=== PATIENT | male | born 1950 | race African-American/Black ===

== ENCOUNTER 2017-01-29 15:01 | Observation (INO) | payer OTHER ==
[~2017-01-29] VITALS: Ht 180.3 cm; Wt 70.8 kg
--- NOTE | ~2017-01-29 | US37 ---
[facility] A Service [facility] RADIOLOGY TEXT RESULTS PATIENT: SHARONA WHITLEY LOCATION: [facility] : 49 UNIT #: [id number] AGE: [address]: Sebas Pickett MD SEX: M ORDER DR: [id number] [facility] [address] [facility]. [place], [place] [address] [id number] I MR#: [id number] Acc #: [id number] NAME: SHARONA WHITLEY : 1950 SEX: M STUDY DATE/TIME: 01/30/2017 8:19 UNIT: [address] ROOM: [facility] STUDY DESCRIPTION: US Carotid W/Doppler Bilateral Attending Physician: Sebas Pickett M.D. Ordering Physician: Solomon Kenny M.D. Primary Care Physician: Andre Loyola M.D. MEDICAL IMAGING REPORT This report is preliminary unless electronic signature is present EXAM Carotid Doppler ultrasound HISTORY Syncopal episode yesterday. Chronic hypertension. COMPARISON 11/04/2010 TECHNIQUE Ultrasound evaluation was performed with mcwilliams-scale, color flow and Doppler spectral waveform analysis. Carotid flow was assessed using standards based on NASCET methodology. FINDINGS No significant atheromatous plaque is identified within the carotid arteries in the neck bilaterally. Doppler evaluation shows normal flow velocities and normal Doppler waveforms within the carotid and vertebral arteries bilaterally. There is no evidence of significant carotid stenosis in the neck. IMPRESSION Normal carotid Doppler ultrasound examination. Dictated by... Dionisio Burkett M.D. THIS IS AN ELECTRONICALLY VERIFIED REPORT Dionisio Burkett M.D. at 02/01/2017 7:22 AM RLF/psc [facility] A [facility] RADIOLOGY TEXT RESULTS PATIENT: SHARONA WHITLEY LOCATION: [facility] : 49 UNIT #: [id number] AGE: [address]: Sebas Pickett MD SEX: M ORDER DR: TD: 01/30/2017 23:44 JOB #: [id number] MEDICAL IMAGING REPORT Page 1 of 1 COPY
--- NOTE | ~2017-01-29 | CR151 ---
[facility] A Service of [facility] RADIOLOGY TEXT RESULTS PATIENT: SHARONA WHITLEY LOCATION: [facility] 326-01 : 49 UNIT #: [id number] AGE: [address]: Sebas Pickett MD SEX: M ORDER DR: [id number] [facility] [address] [facility]. [place], [place] [address] [id number] I MR#: [id number] Acc #: [id number] NAME: SHARONA WHITLEY : 1950 SEX: M STUDY DATE/TIME: 01/29/2017 15:23 UNIT: A [facility] ROOM: [facility] STUDY DESCRIPTION: CR Hip Min 2 Views Rt Attending Physician: Sebas Pickett M.D. Ordering Physician: Geovanni Ryan D.O. Primary Care Physician: Andre Loyola M.D. MEDICAL IMAGING REPORT This report is preliminary unless electronic signature is present EXAM Right hip. INDICATIONS Right hip pain for 6 weeks. Twisted right leg. FINDINGS Two views of the right hip without comparison. The patient has a right hip arthroplasty. Alignment is anatomic. No foreign body. IMPRESSION No acute findings. Dictated by... Santi Irvin M.D. THIS IS AN ELECTRONICALLY VERIFIED REPORT Santi Irvin M.D. at 01/30/2017 5:16 PM RPWilfredo/esther TD: 01/30/2017 16:48 JOB #: [id number] MEDICAL IMAGING REPORT Page 1 of 1 COPY
--- NOTE | ~2017-01-29 | CR72 ---
[facility] A Service of [facility] & [facility] RADIOLOGY TEXT RESULTS PATIENT: SHARONA WHITLEY LOCATION: [facility] 326-01 : 49 UNIT #: [id number] AGE: [address]: Sebas Pickett MD SEX: M ORDER DR: [id number] [facility] [address] [facility] [place], [place] [address] [id number] I MR#: [id number] Acc #: [id number] NAME: SHARONA WHITLEY : 1950 SEX: M STUDY DATE/TIME: 01/29/2017 15:20 UNIT: [address] ROOM: [facility] STUDY DESCRIPTION: CR Chest Single View Portable Attending Physician: Sebas Pickett M.D. Ordering Physician: Geovanni Ryan D.O. Primary Care Physician: Andre Loyola M.D. MEDICAL IMAGING REPORT This report is preliminary unless electronic signature is present EXAM Single view chest. INDICATIONS Syncope. Fall. FINDINGS Single portable AP view of the chest compared to 11/04/2010. Heart and mediastinal contours normal. Lungs are clear. No pleural effusion. IMPRESSION No acute cardiopulmonary findings. Dictated by... Santi Irvin M.D. THIS IS AN ELECTRONICALLY VERIFIED REPORT Santi Irvin M.D. at 01/30/2017 5:16 PM RPWilfredo/esther TD: 01/30/2017 16:50 JOB #: [id number] MEDICAL IMAGING REPORT Page 1 of 1 COPY
--- NOTE | ~2017-01-29 | DS ---
Unit #: [id number] #: [id number] Patient: SHARONA WHITLEY [id number] [address] [address] [id number] I MR#: [id number] NAME: SHARONA WHITLEY ROOM: 326 Age: 66 Sex: M Admission Date: 01/29/2017 : 1950 Discharge Date: 01/31/2017 Attending Physician: Sebas Pickett M.D. Primary Care Physician: Andre Loyola M.D. DISCHARGE SUMMARY DISCHARGE DIAGNOSES 1. Syncope. 2. Coronary artery disease. 3. History of renal transplant. 4. Hypertension. 5. Hyperlipidemia. 6. Diabetes. HOSPITAL COURSE The patient is a 66-year-old male admitted 01/29/2017 after an episode of syncope. The patient states that he was at [place] fle[place] market when he felt dizzy and leaned against his truck. He states that he must of loss consciousness because he then awoke after having been unconscious. He stated he had never had an episode of this before and denies chest pain, shortness of breath, or any incontinence. Of note, the patient also has a history of kidney transplant performed in the year 1999. Patient was worked up and had a 2-Dimensional echo, which showed an ejection fraction of 60%. Doppler ultrasound of his carotid arteries is normal. The patient did go for stress testing, which revealed some anterior wall ischemia that is felt to be secondary to an RCA stenosis that is not amenable to percutaneous intervention. The patient had several sets of orthostatic vital signs, one of which was very positive. It is unclear if this is related to volume, diabetic dysautonomia or side effect of his CellCept. Regardless at this time, the patient has been syncope free and his workup has been relatively benign. He is requesting discharge at this time and it seems reasonable, as there are no further testing plans. DISCHARGE MEDICATIONS 1. Pravastatin 40 mg daily. 2. Losartan 50 mg daily. 3. CellCept 1,000 mg p.o. b.i.d. 4. Plavix 75 mg daily. 5. Protonix 40 mg daily. 6. Potassium chloride ER 10 mEq daily. 7. Glucotrol XL 10 mEq p.o. daily. 8. Onglyza 5 mg p.o. daily. FOLLOWUP Patient should followup with his cargoman, Dr. Land, at his next regularly scheduled appointment. Additionally he should followup with his primary care provider, Dr. Andre Loyola in one to two weeks. Unit #: [id number] #: [id number] Patient: SHARONA WHITLEY Dictated by... Sebas Pickett M.D. CHRISTIANO/nick TD: 02/01/2017 11:32 JOB #: [id number] DISCHARGE SUMMARY Page 1 of 1 X Sebas Pickett MD X DISCHARGE SUMMARY
--- NOTE | ~2017-01-29 | HM ---
Unit #: [id number] #: [id number] Patient: SHARONA WHITLEY [id number] [address] [address] [id number] I MR#: [id number] NAME: SHARONA WHITLEY : 1950 SEX: M STUDY DATE/TIME: 02/03/2017 UNIT: C3A PCU ROOM: [facility] STUDY DESCRIPTION: Holter monitor Attending Physician: Sebas Pickett M.D. Primary Care Physician: Andre Loyola M.D. CARDIOLOGY REPORT EXAM 24-hour Holter monitor. DATE APPLIED 01/30/17 DATE SCANNED 02/02/[address] Pickett READ BY Dr. Lela Charles. INDICATION Syncope. COMMENTS Underlying rhythm is sinus bradycardia with an average heart rate of 56 beats per minute, minimum heart rate of 44 beats per minute, and a maximum heart rate of 122 beats per minute. The minimum heart rate of 44 beats per minute is noted at 11:53 a.m. The maximum heart rate of 122 beats per minute is noted at 2:14 p.m. Patient had a 1-second pause noted at 12:02 a.m. Patient had 195 single multifocal premature ventricular complex and 8 ventricular couplets noted. Patient had 329 single premature atrial complex noted. Patient did not record any symptoms. CONCLUSIONS 1. Underlying rhythm is sinus bradycardia with an average heart rate of 56 beats per minute, minimum heart rate of 44 beats per minute, and a maximum heart rate of 122 beats per minute. 2. No sustained atrial or ventricular arrhythmias noted. 3. No significant pauses noted. 4. Occasional single multifocal premature ventricular complex noted. 5. Occasional single premature atrial complex noted. 6. Patient did not record any symptoms. Dictated by... Lela Charles M.D. Unit #: [id number] #: [id number] Patient: SHARONA WHITLEY REBEKA/latha TD: 02/03/2017 13:20 JOB #: [id number] CARDIOLOGY REPORT Page 1 of 1 X Lela Charles MD <ELECTRONICALLY SIGNED> 03/10/17 152 HOLTER MONITOR REPORT
--- NOTE | ~2017-01-29 | EKG ---
PATIENT: SHARONA WHITLEY UNIT #: [id number] Ventricular Rate: 93 BPM Atrial Rate: 93 BPM P-R Interval: 176 ms QRS Duration: 98 ms Q-T Interval: 362 ms QTC Calculation(Bezet): 450 ms P [place]: 59 degrees Calculated R [place]: -32 degrees Calculated T [place]: 7 degrees Diagnosis Line: Normal sinus rhythm Diagnosis Line: Left axis deviation Diagnosis Line: Voltage criteria for left ventricular hypertrophy Diagnosis Line: Inferior infarct , age undetermined Diagnosis Line: Abnormal ECG Diagnosis Line: When compared with ECG of 13-NOV-2013 23:44, Diagnosis Line: Vent. rate has increased BY 36 BPM Diagnosis Line: Inverted T waves have replaced nonspecific T wave Diagnosis Line: abnormality in Inferior leads Diagnosis Line: QT has lengthened Diagnosis Line: Confirmed by ELISABETH RAMIREZ, RAYNA ([id number]) on 01/30/2017 Diagnosis Line: 3:07:29 PM INTERPRETING MD: ELISABETH RAMIREZ
--- NOTE | ~2017-01-29 | CT71 ---
[facility] A Service of [facility] RADIOLOGY TEXT RESULTS PATIENT: SHARONA WHITLEY LOCATION: [facility] 326 : 49 UNIT #: [id number] AGE: [address]: Sebas Pickett MD SEX: M ORDER DR: [id number] [place] [id number] [facility]. [place], [place] [address] [id number] I MR#: [id number] Acc #: [id number] NAME: SHARONA WHITLEY : 1950 SEX: M STUDY DATE/TIME: 01/29/2017 16:50 UNIT: C3A PCU ROOM: [facility] STUDY DESCRIPTION: CT Head Wo Contrast Attending Physician: Sebas Pickett M.D. Ordering Physician: Geovanni Ryan D.O. Primary Care Physician: Andre Loyola M.D. MEDICAL IMAGING REPORT This report is preliminary unless electronic signature is present EXAM CT head. INDICATIONS Syncopal episode approximate [address] head 11/03/2010. TECHNIQUE CT head without contrast. Axial noncontrast images were obtained from the skull base to the vertex. This CT exam was performed with one or more of the following radiation dose reduction techniques: automatic exposure control, adjustment of mA and/or kV according to patient size, and iterative reconstruction. FINDINGS Ventricular size and configuration are normal. There is no evidence of acute infarct or hemorrhage. There are no extraaxial fluid collections. No mass lesion or mass effect is seen. There are no skull fractures. IMPRESSION Normal noncontrast head CT. Dictated by... Santi Irvin M.D. THIS IS AN ELECTRONICALLY VERIFIED REPORT Santi Irvin M.D. at 01/30/2017 5:44 PM C/esther TD: 01/30/2017 17:34 JOB #: [id number] [facility] A Service [facility] RADIOLOGY TEXT RESULTS PATIENT: SHARONA WHITLEY LOCATION: [facility] 326 : 49 UNIT #: [id number] AGE: [address]: Sebas Pickett MD SEX: M ORDER DR: MEDICAL IMAGING REPORT Page 1 of 1 COPY
--- NOTE | ~2017-01-29 | ST ---
Unit #: [id number] #: [id number] Patient: SHARONA WHITLEY [id number] [address] [address] [id number] I MR#: [id number] NAME: SHARONA WHITLEY : 1950 SEX: M STUDY DATE/TIME: UNIT: C3A PCU ROOM: [facility] STUDY DESCRIPTION: Stress Test Attending Physician: Sebas Pickett M.D. Primary Care Physician: Andre Loyola M.D. CARDIOLOGY REPORT EXAM Walking Lexiscan Cardiolite Stress Test FINDINGS Baseline EKG - sinus bradycardia with a rate of 50 beats per minute, otherwise normal. Lexiscan was injected immediately followed by Cardiolite while the patient ambulated on the treadmill for a total of 4 minutes. He had no complaints of chest pain, palpitations or dizziness. EKG during Lexiscan showed no ST-T wave abnormalities. Was noted for occasional premature ventricular complex and premature atrial complexes. Maximum blood pressure response 170/96 mmHg. Baseline blood pressure 130/90 mmHg. Please correlate these results with nuclear images. Dictated by... Elliot Green A.P.R.N. for Saadia Ellis/africa TD: 01/31/2017 12:46 JOB #: [id number] CARDIOLOGY REPORT Page 1 of 1 X Elliot Green APRN CARDIOLOGY REPORT
--- NOTE | ~2017-01-29 | CO ---
Unit #: [id number] #: [id number] Patient: SHARONA WHITLEY [id number] [address] [place], [place] [address] [id number] I MR#: [id number] NAME: SHARONA WHITLEY ROOM: 326 Age: 66 Sex: M Admission Date: 01/29/2017 : 1950 Attending Physician: Sebas Pickett M.D. Primary Care Physician: Andre Loyola M.D. Consultation Date: 01/30/2017 CONSULTATION REPORT REASON FOR CONSULTATION Syncope. HISTORY OF PRESENT ILLNESS This is a 66-year-old male with a prior history of kidney transplant in 1999; anemia; hypertension; and diabetes mellitus type 2; hyperlipidemia; history of TIA; and coronary artery disease, status post stent in the past. He is a patient of Dr. Land and states he had his last cardiac cath 3 to 4 years ago at [facility], where a stent was placed. He also reports he follows with a vascular doctor, who is monitoring blockages in his neck. He presented to the ER after a syncopal episode. States he was at the [employer] market yesterday and abruptly felt lightheaded and blacked out. He did fall with an episode. He denies prior chest discomfort or shortness of breath with the episode. He denies recent illness with fever, chills, or body aches. He does report that he has had decreased activity lightly. States he just felt like he has not been doing the things that he normally does. He denies chest pain in the last few years. He does report he had an [place] many years ago and had a cardiac cath with stent placement. He had an abnormal stress test 3 to 4 years ago and had the cardiac cath with stent placed at [facility]. Those records are currently not available. He states he is not very active, but when he does daily activities, he does not get chest discomfort, or shortness of breath. He denies any other syncopal episodes. He is currently chest pain free. He denies any return of dizziness or lightheadedness. Denies shortness of breath. PAST MEDICAL HISTORY 1. 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 2. Anemia. 3. Hypertension. 4. Coronary artery disease, status post stent with last cath 3 to 4 years ago (records currently not available). 5. Diabetes mellitus type 2. 6. Hyperlipidemia. 7. History of TIA. 8. History of C diff colitis. 9. History of diverticular disease. 10. GERD. PAST SURGICAL HISTORY 1. History of cardiac cath and stent. Unit #: [id number] #: [id number] Patient: SHARONA WHITLEY 2. Right total hip replacement. SOCIAL HISTORY The patient lives alone. He denies history of smoking or illicit drug use. States he rarely drinks alcohol. FAMILY HISTORY Denies family history of premature coronary disease. ALLERGIES No known drug allergies. HOME MEDICATIONS Plavix 75 mg p.o. once a day, Protonix 40 mg p.o. daily, losartan 100 mg p.o. daily, Onglyza 5 mg p.o. daily, pravastatin 40 mg p.o. daily, mycophenolate mofetil 1000 mg p.o. every 12 hours, Glucotrol XL 10 mg p.o. daily, potassium chloride 10 mEq p.o. daily. REVIEW OF SYSTEMS A 10-point review of systems was conducted and is otherwise negative except for what was stated in HPI. PHYSICAL EXAMINATION VITAL SIGNS: Temp 98.1, heart rate 63, respiratory rate 18, blood pressure 125/65. GENERAL: This is a 66-year-old male resting in bed, in no acute distress. HEENT: Head is atraumatic and normocephalic. Pupils are equal and reactive to light. Mucous membranes are moist and intact. NECK: Bilateral carotid arterial bruit. No slowing of heart rate with carotid massage. Trachea is midline. No JVD. CARDIOVASCULAR: S1, S2. Regular rate and rhythm. LUNGS: Clear. Nonlabored respirations. ABDOMEN: Soft, nontender, and nondistended. There is a right femoral arterial bruit. EXTREMITIES: Pulses are palpable. No pedal edema. No cyanosis. NEUROLOGIC: Alert and oriented to x3. Moves all extremities equally and follows commands without difficulty. DIAGNOSTIC STUDIES LABORATORY RESULTS: Sodium 138, potassium 3.8, chloride 102, BUN 15, creatinine 1.4, glucose 208. Hemoglobin 13.1, hematocrit 40.9, white blood cell count 11.3, platelets 277. Point of care troponin less than 0.05. CARDIOVASCULAR STUDIES: EKG shows sinus rhythm with Q-waves in inferior lead and nonspecific T-wave abnormalities and left axis deviation. ASSESSMENT 1. Syncope, questionable postural hypotension. 2. Bilateral carotid arterial bruits. 3. Right femoral arterial bruit. 4. Coronary artery disease, status post percutaneous coronary intervention and stents, old inferior wall myocardial infarction. 5. Status post renal transplant in 1999. 6. Left hip pain, status post fall during syncope. PLAN Unit #: [id number] #: [id number] Patient: SHARONA WHITLEY 1. We will obtain his cardiac cath report from [facility] as well as his other cardiac records. 2. Check lipid profile. 3. Check TSH. 4. Walking Lexiscan Cardiolite stress test in the a.m. 5. Aspirin 81 mg daily. 6. BP supine and standing b.i.d. 7. Holter monitor to check for bradycardia. 8. Naprosyn 375 mg p.o. q.12 hours for hip pain x4 doses only. Thank you for asking us to see this patient. We appreciate the consult. Dictated by... Debbie Olvera APRN for Todd Lal M.D. JARAD/katharina TD: 01/31/2017 11:32 JOB #: [id number] CONSULTATION REPORT Page 1 of 1 X X CONSULTATION REPORT
--- NOTE | ~2017-01-29 | HP ---
Unit #: [id number] #: [id number] Patient: SHARONA WHITLEY [id number] [address] [address] [id number] MR#: [id number] NAME: SHARONA WHITLEY ROOM: 326 Age: 66 Sex: M Admission Date: 01/29/2017 : 1950 Attending Physician: Sebas Pickett M.D. Primary Care Physician: Andre Loyola M.D. HISTORY AND PHYSICAL CHIEF COMPLAINT Syncopal episode. DISCUSSION This is a 66-year-old gentleman who has a past medical history of hypertension, history of kidney transplant on chronic immune suppression therapy, history of coronary artery disease, previous stent, diabetes, dyslipidemia and GERD. He states he was at [employer] market today and the next thing he remembered that he was on the floor. He said he felt a little dizziness and leaning against the truck and then he said he does not remember how long he passed out. He denies any chest pain, nausea, vomiting, fever, chills, cough or any complaint. He denies any previous history of syncopal episode. He denied chest pain. He denied incontinence of bowel, urine or any other complaint. PAST MEDICAL HISTORY 1. 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 2. History of chronic immune suppression therapy secondary to kidney transplant. 3. Hypertension. 4. Coronary artery disease with previous stent. 5. Diabetes. 6. Dyslipidemia. 7. GERD. 8. History of C. diff. colitis in the past. 9. History of diverticular disease. PAST SURGICAL HISTORY 1. History of cardiac cath and stent. 2. Right total hip replacement. SOCIAL HISTORY The patient lives alone, denies smoking, uses alcohol very seldom, denied any illicit drug use. FAMILY HISTORY Diabetes, colon cancer (1) in the family. ALLERGIES No known drug allergy. MEDICATION FROM HOME I do not have doses at this time. Unit #: [id number] #: [id number] Patient: SHARONA WHITLEY 1. Rapamune. 2. Fenofibrate. 3. Atenolol. 4. Plavix. 5. Protonix. 6. Actos. 7. Losartan. 8. Onglyza. 9. Pravastatin. 10. Mycophenolate. 11. Glucotrol XL. 12. Potassium chloride. REVIEW OF SYSTEMS All review of systems negative except for history of presenting illness. PHYSICAL EXAMINATION GENERAL APPEARANCE: Middle-aged man lying in the bed comfortably, currently, not in any distress. He is alert, awake, oriented x3, comfortable, not in any distress. CURRENT VITAL SIGNS: Temperature 97.8. Heart rate 94. Respiratory rate 15. Blood pressure 145/84. Oxygen 100% on room air. HEENT: Pupils equal and reactive to light. Head is normocephalic, atraumatic. NECK: Supple. Positive carotid bruit bilaterally. LUNGS: Clear to auscultation bilaterally. No rhonchi. No wheezing. HEART: S1, S2. Regular rate and rhythm. ABDOMEN: Soft, nontender, nondistended. Bowel sounds positive. EXTREMITIES: Inspection normal. No cyanosis. No clubbing. No edema. NEUROLOGIC: No focal neurologic deficit. Cranial nerves II-XII intact. Power 5/5 on both sides. SKIN: Warm and dry. PSYCHIATRIC: Normal mood and affect. DIAGNOSTIC STUDIES LABORATORY: Troponin is less than 0.05, less than 0.05. Sodium 138, potassium 3.8, chloride 102, glucose 208, BUN 15, creatinine 1.4. LFTs within normal limits. INR is one. White count 11, hemoglobin 13, hematocrit 40, platelets 277. IMAGING: Chest x-ray negative. CT head is negative. X-ray of the right hip is negative. ASSESSMENT AND PLAN 1. Syncopal episode. We will admit the patient 23-hour observation. We will get 2D echo, carotid Doppler and monitor on telemetry. Ask Cardiology to evaluate. 2. Hypertension. 3. History of chronic immune suppression secondary to history of renal transplant. 4. Coronary artery disease with previous stent. 5. Diabetes. 6. Dyslipidemia. 7. GERD. 8. DVT prophylaxis. Place the patient on Lovenox. Dictated by Unit #: [id number] #: [id number] Patient: SHARONA WHITLEY Saadia Arreguin TD: 01/30/2017 12:16 JOB #: [id number] HISTORY AND PHYSICAL Page 1 of 1 X X HISTORY AND PHYSICAL
--- NOTE | ~2017-01-29 | TH ---
Unit #: [id number] #: [id number] Patient: SHARONA WHITLEY [id number] [address] [address] [id number] I MR#: [id number] NAME: SHARONA WHITLEY : 1950 SEX: M STUDY DATE/TIME: 01/31/2017 UNIT: C3A PCU ROOM: [facility] STUDY DESCRIPTION: Attending Physician: Sebas Pickett M.D. Primary Care Physician: Andre Loyola M.D. CARDIOLOGY REPORT EXAM Lexiscan Cardiolite stress test, nuclear portion. PROCEDURE Using technetium 99m labeled Cardiolite, rest and stress SPECT images were obtained. Multiple SPECT images were obtained in various views including horizontal and vertical long axis and short axis views of the left ventricle. Images were obtained by gated SPECT method. Patient was administered 10.1 mCi of Cardiolite at rest. Patient was administered 31.3 mCi of Cardiolite after Lexiscan infusion was completed. On the stress images, there is a medium-sized area of severe decreased isotope activity inferiorly. The rest images show a smaller area of mild decreased isotope activity inferiorly. Comparing rest and stress images, a medium-sized area of stress-induced ischemia involving the inferior wall of the left ventricle cannot be ruled out. The left ventricular ejection fraction is calculated to be 46%. There is suspicion for inferior wall hypokinesis. CONCLUSION 1. There is suspicion for stress-induced ischemia involving the inferior wall of the left ventricle. 2. The left ventricular ejection fraction is calculated to be 46%. 3. There is possible inferior wall hypokinesis seen. 4. Abnormal Lexiscan Cardiolite stress test. 5. Technically limited study. Clinical correlation is requested. 1. Dictated by... Saadia Rojas TD: 01/31/2017 14:16 JOB #: [id number] Unit #: [id number] #: [id number] Patient: SHARONA WHITLEY CARDIOLOGY REPORT Page 1 of 1 X Lela Charles MD <ELECTRONICALLY SIGNED> 03/10/17 1524 CARDIOLOGY REPORT
[~2017-01-29 15:01] MED LIST: ACETAMINOPHEN PO; ACTOS30 MG PO; AMBIEN PO; ASPIRIN81 M1 PO; ASPIRINEC PO; ATENOLOL25 MG PO; CELLCEPT; CLOPIDOGREL75 MG PO; COLACE PO; COZAAR; COZAAR PO; DEXILANT60 MG PO; FENOFIBRATE48 MG PO; FISH OIL 1,0001 CAP PO; FLAGYL PO; FLORASTOR250 M1 PO; GLUCOTROL; GLUCOTROL XL PO; IMDUR; LOPRESSOR; LOSARTAN POTASS50 MG PO; MILK OF MAGNESIA PO; MYCOPHENOLATE500 MG PO; NEXIUM; NEXIUM PO; ONGLYZA5 MG PO; PLAVIX; PLAVIX PO; POTASSIUM CHLO10 ME1 PO; POTASSIUM CHLO10 MEQ PO; PRAVACHOL PO; PRAVASTATIN SOD40 MG PO; PRAVASTATIN SOD80 MG PO; PREDNISONE PO; PROTONIX PO; RAPAMUNE PO; RAPAMUNE1 MG PO; SOD BICARBONATE PO; TRICOR PO; VANCOCIN HCL250 MG PO; VANTIN200 MG PO; VITAMIN D35000 UNIT PO; [UNRECOGNIZED DRUG - OTHER]
[2017-01-29 16:42] LABS: BASOPHIL% 0.4 % (0-2.5); EOSINOPHIL# 0.1 X10e3 (0-0.7); EOSINOPHIL% 0.5 % (0.0-7.0); HEMATOCRIT 40.9 % (38.0-50.0); HEMOGLOBIN 13.1 gm/dL (13.0-16.0); LYMPHOCYTE# 2.2 X10e3 (1.0-3.5); LYMPHOCYTE% 19.5 % (17.0-45.0); MEAN CELL VOLUME 95.5 FL (83-96); MEAN CORPUSCULAR HEMOGLOBIN 30.7 PG (28-34); MEAN CORPUSCULAR HGB CONC 32.1 g/dL (30-36); MONOCYTE% 8.9 % (3.0-12.0); NEUTROPHIL% 70.7 % (40-75); PLATELET COUNT 277 X10e3 (140-420); RED BLOOD COUNT 4.28 X10e (3.90-5.60); RED CELL DISTRIBUTION WIDTH 13.6 % (11.0-15.5); WHITE BLOOD COUNT 11.3 X10e3 (4.0-10.5)
[2017-01-29 16:47] LABS: DIFF IND NO
[2017-01-29 16:54] LABS: PARTIAL THROMBOPLASTIN TIME 21.9 SECONDS (23.5-31.3); PROTHROMBIN TIME (PATIENT) 10.9 SECONDS (10.0-11.7)
[2017-01-29 17:04] LABS: ALBUMIN SERUM 4.4 g/dL (3.5-5.0); BILIRUBIN, DIRECT 0.1 mg/dL (0.0-0.2); BILIRUBIN,INDIRECT 0.5 mg/dL (0.0-0.9); BILIRUBIN,TOTAL 0.6 mg/dL (0.2-2.0); BUN/CREATININE RATIO 10.71; CALCIUM SERUM 10.2 mg/dL (8.4-10.2); CREATININE SERUM 1.4 mg/dL (0.6-1.4); GLOM FILT RATE Estimated 59.9 mL/min (>60); POTASSIUM 3.8 mmol/L (3.5-5.1)
[2017-01-29 17:48] LABS: POC - CKMB 2.4 ng/mL (0.0-7.9); POC - TROPONIN <0.05 ng/mL (<=0.05)
[2017-01-29 18:45] LABS: POC - CKMB 1.4 ng/mL (0.0-7.9); POC - TROPONIN <0.05 ng/mL (<=0.05)
[2017-01-30 15:27] LABS: CHOLESTEROL 132 mg/dL (0-200); HDL CHOLESTEROL 35 mg/dL (29-75); LDL CHOLESTEROL 77 mg/dL ([, -130]); LDL/HDL RATIO 2 RATIO (0-4); TRIGLYCERIDES 99 mg/dL (10-160)
[2017-01-31 18:25] LABS: BUN/CREATININE RATIO 14.61; CREATININE SERUM 1.3 mg/dL (0.6-1.4); GLOM FILT RATE Estimated 65.5 mL/min (>60); POTASSIUM 4.2 mmol/L (3.5-5.1)
[2017-01-31] MEDS ORDERED: LOSARTAN POTASS50 MG PO (18:39)
== END 2017-01-31 19:03 | disposition home or self-care (01) ==
LOC: CED 15:01 → C3A PCU 20:00
PROVIDERS: Emergency Medicine; Internal Medicine; Internal Medicine Cardiovascular Disease
DX: R55 Syncope and collapse (principal); I25.10 Atherosclerotic heart disease of native coronary artery without angina pectoris; I10 Essential (primary) hypertension; I25.2 Old myocardial infarction; E78.5 Hyperlipidemia, unspecified; E11.9 Type 2 diabetes mellitus without complications; K21.9 Gastro-esophageal reflux disease without esophagitis; R01.1 Cardiac murmur, unspecified; Z79.02 Long term (current) use of antithrombotics/antiplatelets; Z79.899 Other long term (current) drug therapy; Z79.84 Long term (current) use of oral hypoglycemic drugs; Z94.0 Kidney transplant status; Z96.641 Presence of right artificial hip joint; Z95.5 Presence of coronary angioplasty implant and graft
CPT/HCPCS: 36415; 70450; 71010; 73502; 78452; 80048; 80061; 80076; 82553; 82947; 84443; 84484; 85025; 85610; 85730; 93005; 93017; 93225; 93226; 93306; 93880; 94760; 96372; 99285; A9500; G0378; J1650; J1815; J2785; J7517